=== PATIENT | female | born 1995 | race Hispanic/Latino ===

== ENCOUNTER 2021-08-29 13:29 | Emergency (ER) | payer OTHER ==
[~2021-08-29] VITALS: Ht 170.2 cm; Wt 61.2 kg
[2021-08-29 14:11] LABS: BASOPHILS % (AUTO) 0.6 % (0.0-5.0); EOSINOPHILS % (AUTO) 0.9 % (0.0-8.0); HEMATOCRIT 42.4 % (36-48); LYMPHOCYTES % (AUTO) 29.8 % (21.0-51.0); MEAN CORPUSCULAR HEMOGLOBIN 28.9 pg (27.0-33.0); MEAN CORPUSCULAR HGB CONC 33.5 g/dL (32.0-36.0); MEAN CORPUSCULAR VOLUME 86.4 fL (79-99); MONOCYTES % (AUTO) 10.3 % (3.0-13.0); NEUTROPHILS % (AUTO) 58.1 % (40.0-77.0); PLATELET COUNT (AUTO) 153 K/uL (130-400); RED BLOOD CELL COUNT(AUTO) 4.91 MIL/uL (4.00-5.50); RED CELL DISTRIBUTION WIDTH 11.9 % (11.0-15.5); WHITE BLOOD COUNT (AUTO) 3.4 K/uL (4.8-10.8)
[2021-08-29 14:28] LABS: CREATININE 0.7 mg/dL (0.5-1.5); POTASSIUM 4.1 mmol/L (3.5-5.1)
[2021-08-29 14:38] LABS: ALBUMIN 4.1 g/dL (3.5-5.0); BILIRUBIN,TOTAL 0.3 mg/dL (0.2-1.0); TOTAL PROTEIN, SERUM 7.5 g/dL (6.0-8.3)
[2021-08-29 16:06] VITALS: BP 119/53
== END 2021-08-29 16:07 | disposition home or self-care (01) ==
LOC: EDH 13:29 → EEVIPCON 13:29 → EDH 16:07
DX: O03.9 Complete or unspecified spontaneous abortion without complication (principal); Z3A.01 Less than 8 weeks gestation of pregnancy
CPT/HCPCS: 36415; 80053; 83033; 84702; 85025; 86900; 86901; 96372; 99283; J2791

== ENCOUNTER → 2021-12-17 | Outpatient (CLI) | payer OTHER | END | disposition home or self-care (01) | LOC: LAB 09:02 | PROVIDERS: ATTEND Internal Medicine Cardiovascular Disease | DX: Z20.822 Contact with and (suspected) exposure to COVID-19 (principal) | CPT/HCPCS: 87635; C9803 ==

== ENCOUNTER → 2021-12-25 | Outpatient (CLI) | payer OTHER ==
[2021-12-25 07:56] LABS: BASOPHILS % (AUTO) 0.7 % (0.0-5.0); EOSINOPHILS % (AUTO) 1.6 % (0.0-8.0); HEMATOCRIT 44.2 % (36-48); LYMPHOCYTES % (AUTO) 35.1 % (21.0-51.0); MEAN CORPUSCULAR HEMOGLOBIN 29.6 pg (27.0-33.0); MEAN CORPUSCULAR VOLUME 89.5 fL (79-99); MONOCYTES % (AUTO) 9.5 % (3.0-13.0); NEUTROPHILS % (AUTO) 52.7 % (40.0-77.0); PLATELET COUNT (AUTO) 213 K/uL (130-400); RED BLOOD CELL COUNT(AUTO) 4.94 MIL/uL (4.00-5.50); RED CELL DISTRIBUTION WIDTH 12.2 % (11.0-15.5); WHITE BLOOD COUNT (AUTO) 5.6 K/uL (4.8-10.8)
[2021-12-25 08:05] LABS: % IRON SATURATION 49.7 % (22-44)
[2021-12-25 08:12] LABS: ALBUMIN 4.4 g/dL (3.5-5.0); BILIRUBIN,TOTAL 0.8 mg/dL (0.2-1.0); CREATININE 0.7 mg/dL (0.5-1.5); POTASSIUM 4.1 mmol/L (3.5-5.1); TOTAL PROTEIN, SERUM 7.7 g/dL (6.0-8.3)
== END | disposition home or self-care (01) ==
LOC: EDH 07:30
DX: D64.9 Anemia, unspecified (principal)
CPT/HCPCS: 36415; 80053; 83540; 83550; 85025